=== PATIENT | female | born 1975 | race Caucasian/White ===

== ENCOUNTER 2018-02-03 13:16 | Emergency (ER) | payer OTHER | END 2018-02-03 14:54 | disposition home or self-care (01) | LOC: ER 13:16 | DX: S00.93XA Contusion of unspecified part of head, initial encounter (principal); J45.909 Unspecified asthma, uncomplicated; Z88.2 Allergy status to sulfonamides; X58.XXXA Exposure to other specified factors, initial encounter; Y93.89 Activity, other specified; Y99.8 Other external cause status; Y92.89 Other specified places as the place of occurrence of the external cause | CPT/HCPCS: 70450; 99284-25 ==

== ENCOUNTER → 2018-09-22 | Outpatient (CLI) | payer OTHER ==
[2018-02-03 13:37] VITALS: BP 137/87
[~2018-09-22] MED LIST: ASPI325T11 PO; CLIN150C14 PO; HYDR-2762 PO; HYDR-3164 PO; IBUP-1027 PO; LORA10TA65 PO; PROAIR HFA8.5 GM INH; PROM25TA10 PO
--- NOTE | 2018-09-22 17:13 | RAD ---
DATE: 09/22/2018 EXAM: DIGITAL SCREEN BILAT W/CAD HISTORY: Routine screening COMPARISON: None. This exam is a baseline. This study was interpreted with the benefit of Computerized Aided Detection (CAD). Breast Density: SCATTERED The breast parenchyma shows scattered fibroglandular densities. Breast parenchyma level B. FINDINGS: And ovoid well-circumscribed mass at the left upper outer breast measuring 1.3 cm in maximum dimension is present approximately 7 cm deep from the nipple. No suspicious calcification clusters. No distortion. IMPRESSION: Left upper outer breast mass which may represent a cyst or other likely benign process. Ultrasound examination of the left upper-outer breast is recommended for further assessment. Annual right screening mammography recommended. BI-RADS CATEGORY: 0 INCOMPLETE: NEEDS ADDITIONAL IMAGING EVALUATION AND/OR PRIOR MAMMOGRAMS FOR COMPARISON. RECOMMENDED FOLLOW-UP: ADD ADDITIONAL IMAGING PQRS compliance statement: Patient information was entered into a reminder system with a target due date immediately for the next mammogram. Mammography is a sensitive method for finding small breast cancers, but it does not detect them all and is not a substitute for careful clinical examination. A negative mammogram does not negate a clinically suspicious finding and should not result in delay in biopsying a clinically suspicious abnormality. "Our facility is accredited by the [employer] Mammography Program."
== END | disposition home or self-care (01) ==
LOC: MAMMO 16:03
PROVIDERS: ATTEND Nurse Practitioner Gerontology
DX: Z12.31 Encounter for screening mammogram for malignant neoplasm of breast (principal)
CPT/HCPCS: 77067

== ENCOUNTER → 2018-09-28 | Outpatient (CLI) | payer OTHER ==
[2018-02-03 13:37] VITALS: BP 137/87
--- NOTE | 2018-09-28 09:26 | RAD ---
Left breast ultrasound, 09/28/2018: History: Breast nodule A screening mammogram demonstrated a smooth nodule in the upper outer quadrant. A targeted ultrasound exam of that region demonstrates a 12 x 6 x 10 mm nodule at the 2:30 location located 7 cm in the nipple. This corresponds to the mammographic abnormality. This lesion is anechoic with no internal color flow. There are smooth margins. There is posterior acoustic enhancement. It is wider than tall. The features are that of a simple cyst. No other abnormality is seen in this region. IMPRESSION: 1. Small left breast cyst. 2. Routine yearly mammographic follow-up is suggested. BI-RADS 2-benign findings
== END | disposition home or self-care (01) ==
LOC: US 08:51
PROVIDERS: ATTEND Nurse Practitioner Gerontology
DX: N60.02 Solitary cyst of left breast (principal)
CPT/HCPCS: 76641

== ENCOUNTER 2019-08-16 09:59 | Emergency (ER) | payer OTHER ==
[~2019-08-16] VITALS: Ht 170.2 cm; Wt 99.8 kg
[~2019-08-16 09:59] MED LIST changes: +ALBU2.5V8 INH; -HYDR-2762 PO; +HYDR-2765 PO; -PROAIR HFA8.5 GM INH
--- NOTE | 2019-08-16 10:27 | PHYS DOC ---
Past Medical History Past Medical History: Asthma Past Surgical History: Hysterectomy, Tubal ligation, Other Additional Past Surgical Histo: left knee Alcohol Use: Occasionally Drug Use: None Adult General Chief Complaint Chief Complaint: HYPERTENSION [facility] HPI 44-year-old female presents to the emergency Department complaints of lightheadedness, elevated blood pressure without diagnosis of hypertension and epistaxis. Patient states she's been treating herself with [id number] medications for congestion and cough. Today she states she was at work was passing medications, became dizzy and subsequently developed nosebleed. She denies any chest pain at that time. She has underlying history of asthma and used her inhaler prior to her coming in. She denies any pain, nausea, vomiting, chest pain, abdominal pain, headache or visual change. Her epistaxis resolved prior to her arrival. Review of Systems Review of Systems Constitutional: Denies fever or chills [] Eyes: Denies change in visual acuity, redness, or eye pain [] HENT: = nasal congestion, + epistaxis Respiratory: Denies cough or shortness of breath [] Cardiovascular: No additional information not addressed in HPI [] GI: Denies abdominal pain, nausea, vomiting, bloody stools or diarrhea [] : Denies dysuria or hematuria [] Musculoskeletal: Denies back pain or joint pain [] Neurologic: Denies headache, focal weakness, dizziness resolved [] All other systems were reviewed and found to be within normal limits, except as documented in this note. Current Medications Current Medications Current Medications Medications (Trade) Dose Ordered Sig/Francesco Start Time Stop Time Status Last Admin Dose Admin Albuterol/ Ipratropium (Duoneb) 3 ml 1X ONCE 08/16/19 10:30 08/16/19 10:31 DC 08/16/19 10:31 3 ML Allergies Allergies Allergies Coded Allergies Type Severity Reaction Last Updated Verified Sulfa (Sulfonamide Antibiotics) Allergy Intermediate Unknown 04/23/16 Yes Physical Exam Physical Exam Constitutional: Well developed, well nourished, no acute distress, non-toxic appearance. [] HENT: Normocephalic, atraumatic, bilateral external ears normal, oropharynx moist, no oral exudates, nose normal. [] Eyes: PERRLA, EOMI, conjunctiva normal, no discharge. [] Cardiovascular:Heart rate regular rhythm, no murmur [] Lungs & Thorax: Bilateral breath sounds clear to auscultation [] Abdomen: Bowel sounds normal, soft, no tenderness, no masses, no pulsatile masses. [] Skin: Warm, dry, no erythema, no rash. [] Back: No tenderness, no CVA tenderness. [] Extremities: No tenderness, no edema. [] Neurologic: Alert and oriented X 3, no focal deficits noted. [] Psychologic: Affect normal, judgement normal, mood normal. [] Current Patient Data Vital Signs Vital Signs Date Time Temp Pulse Resp B/P (MAP) Pulse Ox O2 Delivery O2 Flow Rate FiO2 08/16/19 10:31 98 Room Air 08/16/19 10:05 98.5 86 14 143/89 (107) 98.5 Lab Values Laboratory Tests Test 08/16/19 10:12 08/16/19 10:30 POC Urine HCG, Qualitative Hcg negative (Negative) White Blood Count 11.8 x10^3/uL (4.0-11.0) H Red Blood Count 4.53 x10^6/uL (3.50-5.40) Hemoglobin 14.9 g/dL (12.0-15.5) Hematocrit 43.8 % (36.0-47.0) Mean Corpuscular Volume 97 fL (79-100) Mean Corpuscular Hemoglobin 33 pg (25-35) Mean Corpuscular Hemoglobin Concent 34 g/dL (31-37) Red Cell Distribution Width 13.3 % (11.5-14.5) Platelet Count 240 x10^3/uL (140-400) Neutrophils (%) (Auto) 65 % (31-73) Lymphocytes (%) (Auto) 27 % (24-48) Monocytes (%) (Auto) 5 % (0-9) Eosinophils (%) (Auto) 1 % (0-3) Basophils (%) (Auto) 1 % (0-3) Neutrophils # (Auto) 7.7 x10^3/uL (1.8-7.7) Lymphocytes # (Auto) 3.2 x10^3/uL (1.0-4.8) Monocytes # (Auto) 0.6 x10^3/uL (0.0-1.1) Eosinophils # (Auto) 0.1 x10^3/uL (0.0-0.7) Basophils # (Auto) 0.2 x10^3/uL (0.0-0.2) Sodium Level 140 mmol/L (136-145) Potassium Level 4.4 mmol/L (3.5-5.1) Chloride Level 108 mmol/L (98-107) H Carbon Dioxide Level 24 mmol/L (21-32) Anion Gap 8 (6-14) Blood Urea Nitrogen 10 mg/dL (7-20) Creatinine 0.6 mg/dL (0.6-1.0) Estimated GFR (Cockcroft-Gault) 109.1 BUN/Creatinine Ratio 17 (6-20) Glucose Level 83 mg/dL (70-99) Calcium Level 8.9 mg/dL (8.5-10.1) Total Bilirubin 0.4 mg/dL (0.2-1.0) Aspartate Amino Transferase (AST) 14 U/L (15-37) L Alanine Aminotransferase (ALT) 16 U/L (14-59) Alkaline Phosphatase 66 U/L (46-116) Troponin I Quantitative < 0.017 ng/mL (0.000-0.055) Total Protein 6.5 g/dL (6.4-8.2) Albumin 3.6 g/dL (3.4-5.0) Albumin/Globulin Ratio 1.2 (1.0-1.7) Laboratory Tests 08/16/19 10:30 Laboratory Tests 08/16/19 10:30 EKG EKG [] Radiology/Procedures Radiology/Procedures [] Course & Med Decision Making Course & Med Decision Making Pertinent Labs and Imaging studies reviewed. (See chart for details) []44-year-old female presents to the emergency Department complaints of lightheadedness, elevated blood pressure without diagnosis of hypertension and epistaxis. Patient states she's been treating herself with [id number] medications for congestion and cough. Today she states she was at work was passing medications, became dizzy and subsequently developed nosebleed. She denies any chest pain at that time. She has underlying history of asthma and used her inhaler prior to her coming in. She denies any pain, nausea, vomiting, chest pain, abdominal pain, headache or visual change. Her epistaxis resolved prior to her arrival. Laboratory values reviewed and unremarkable. Chest x-ray reveals no evidence of acute process No epistaxis in the emergency department Blood pressure resolved to 130s Discussed dc with patient Discussed follow up with patient Suad Disclaimer Suad Disclaimer This electronic medical record was generated, in whole or in part, using a voice recognition dictation system. Departure Departure Impression: Primary Impression: Epistaxis Additional Impression: Elevated BP without diagnosis of hypertension Disposition: HOME, SELF-CARE Condition: STABLE Referrals: SUZI GUADARRAMA APRN (PCP) Patient Instructions: How to Take Your Blood Pressure, Gsli-[id number], Nosebleed, [id number] Additional Instructions: Recommend follow up with PCP 3 - 5 days Return to the ER with worsening symptoms, intractable pain, fever, altered mental status Tylenol/Motrin as needed for pain CXR negative for acute process Problem Qualifiers DUTCH LEVI MD Aug 16, 2019 10:27
[2019-08-16] MEDS ORDERED: IPRATRPIUM/ALBUTEROL 0.5/2.5MG 3 ML NEBU. NEB ONE (10:30)
[2019-08-16 10:47] LABS: BASO # 0.2 x10^3/uL (0.0-0.2); BASO % 1 % (0-3); EOS # 0.1 x10^3/uL (0.0-0.7); EOS % 1 % (0-3); HEMATOCRIT 43.8 % (36.0-47.0); HEMOGLOBIN 14.9 g/dL (12.0-15.5); LYMPH # 3.2 x10^3/uL (1.0-4.8); LYMPH % 27 % (24-48); MEAN CORPUSCULAR HEMOGLOBIN 33 pg (25-35); MEAN CORPUSCULAR HGB CONC 34 g/dL (31-37); MEAN CORPUSCULAR VOLUME 97 fL (79-100); MONO # 0.6 x10^3/uL (0.0-1.1); MONO % 5 % (0-9); NEUT # 7.7 x10^3/uL (1.8-7.7); NEUT % 65 % (31-73); PLATELET COUNT 240 x10^3/uL (140-400); RED BLOOD COUNT 4.53 x10^6/uL (3.50-5.40); RED CELL DISTRIBUTION WIDTH 13.3 % (11.5-14.5); WHITE BLOOD COUNT 11.8 x10^3/uL (4.0-11.0)
--- NOTE | 2019-08-16 11:01 | RAD ---
PORTABLE CHEST 1V History: Cough, shortness of breath Comparison: November 01, 2004 Findings: Single view of the chest is submitted. There is no infiltrate, pneumothorax, or effusion. The pericardial cardiac silhouette is within normal limits in size. Impression: 1. There is no radiographic evidence of acute cardiopulmonary disease. Electronically signed by: Woo Carter MD (08/16/2019 10:58 AM) [id number]
[2019-08-16 11:15] LABS: CALCIUM 8.9 mg/dL (8.5-10.1); CREATININE 0.6 mg/dL (0.6-1.0); GFR 109.1; POTASSIUM 4.4 mmol/L (3.5-5.1)
[2019-08-16 11:21] LABS: ALBUMIN 3.6 g/dL (3.4-5.0); ALBUMIN/GLOBULIN RATIO 1.2 (1.0-1.7); TOTAL BILIRUBIN 0.4 mg/dL (0.2-1.0); TOTAL PROTEIN 6.5 g/dL (6.4-8.2)
[2019-08-16 13:01] VITALS: BP 140/88
== END 2019-08-16 13:01 | disposition home or self-care (01) ==
LOC: ER 09:59
DX: R04.0 Epistaxis (principal); R03.0 Elevated blood-pressure reading, without diagnosis of hypertension; J45.909 Unspecified asthma, uncomplicated; Z90.710 Acquired absence of both cervix and uterus; Z98.51 Tubal ligation status; Z88.2 Allergy status to sulfonamides
CPT/HCPCS: 36415; 71045; 80053; 81025; 84484; 85025; 94640; 99285; J7620

== ENCOUNTER → 2020-07-25 | Outpatient (CLI) | payer OTHER ==
--- NOTE | 2020-07-25 15:13 | KCIC ---
Chest radiograph 07/25/2020 12:00 AM INDICATION: Bronchitis COMPARISON: 08/16/2019 TECHNIQUE: Frontal and lateral views of the chest are provided. FINDINGS: The cardiomediastinal silhouette is within normal limits. There are no pleural effusions. There is no pulmonary vascular congestion. There is no pneumothorax. The lungs are clear. No significant osseous abnormality is identified. IMPRESSION: No acute cardiopulmonary process. Electronically signed by: Aleksandra Lozano MD (07/25/2020 3:10 PM) [id number]
== END | disposition home or self-care (01) ==
LOC: KCIC 13:31
PROVIDERS: ATTEND Nurse Practitioner Gerontology
DX: J40 Bronchitis, not specified as acute or chronic (principal)
CPT/HCPCS: 71046

== ENCOUNTER 2021-08-12 12:47 | Emergency (ER) | payer BC, OTHER ==
[~2021-08-12] VITALS: Ht 167.6 cm; Wt 109.0 kg
[~2021-08-12 12:47] MED LIST changes: -CLIN150C14 PO; +CLIN150C16 PO
[2021-08-12] MEDS: DIPH,PERTUSS(ACELL),TET VAC/PF 0.5 ML SYRINGE. VAX IM ONE (13:00)
[2021-08-12] MEDS: methylPREDNISolone SOD SUCC PF 125 MG/2 ML VIAL. IM ONE (13:00)
[2021-08-12 13:02] VITALS: BP 149/89
[2021-08-12] MEDS ORDERED: DIPH25TA64 PO (13:04)
[2021-08-12] MEDS ORDERED: PRED20TA PO (13:04)
[2021-08-12] MEDS ORDERED: CEPH500C PO (13:04)
--- NOTE | 2021-08-12 13:05 | PHYS DOC ---
Past Medical History Past Medical History: Asthma Past Surgical History: Hysterectomy, Tubal ligation, Other Additional Past Surgical Histo: left knee Smoking Status: Current Every Day Smoker Alcohol Use: Occasionally Drug Use: None General Adult EDM: Chief Complaint: ITCHING HPI: HPI: Patient is a 46 year old female who presents with yesterday her cat got out and came back inside and was laying on a pillow. She states she awoke now she has contact dermatitis poison hector type rash on her chest and on her right forearm and dorsal hand. She states she is very allergic to poison hector. She states she is using Caladryl lotion and she has other poison hector lotions at home. States she works at a [employer]. Denies any pain she does states the itching is unbearable. Review of Systems: Review of Systems: Constitutional: Denies fever or chills. [] Eyes: Denies change in visual acuity. [] HENT: Denies nasal congestion or sore throat. [] Respiratory: Denies cough or shortness of breath. [] Cardiovascular: Denies chest pain or edema. [] GI: Denies abdominal pain, nausea, vomiting, bloody stools or diarrhea. [] : Denies dysuria. [] Musculoskeletal: Denies back pain or joint pain. [] Integument: + Right arm rash. +chest. + Right hand [] Neurologic: Denies headache, focal weakness or sensory changes. [] Endocrine: Denies polyuria or polydipsia. [] Lymphatic: Denies swollen glands. [] Psychiatric: Denies depression or anxiety. [] Heart Score: C/O Chest Pain: No Allergies: Allergies: Allergies Coded Allergies Type Severity Reaction Last Updated Verified Sulfa (Sulfonamide Antibiotics) Allergy Intermediate Unknown 04/23/16 Yes Physical Exam: PE: Constitutional: Well developed, well nourished, no acute distress, non-toxic appearance. [] HENT: Normocephalic, atraumatic, bilateral external ears normal, oropharynx rizwan st, no oral exudates, nose normal. [] Eyes: PERRLA, EOMI, conjunctiva normal, no discharge. [] Neck: Normal range of motion, no tenderness, supple, no stridor. [] Cardiovascular:Heart rate regular rhythm, no murmur [] Lungs & Thorax: Bilateral breath sounds clear to auscultation [] Abdomen: Bowel sounds normal, soft, no tenderness, no masses, no pulsatile masses. [] Skin: Warm, dry, right forearm erythema, right forearm, right dorsal hand, chest rash, left neck and slightly on the jawline contact dermatitis type rash. [] Back: No tenderness, no CVA tenderness. [] Extremities: No tenderness, no cyanosis, no clubbing, ROM intact, no edema. [] Neurologic: Alert and oriented X 3, normal motor function, normal sensory function, no focal deficits noted. [] Psychologic: Affect normal, judgement normal, mood normal. [] EKG: EKG: [] Radiology/Procedures: Radiology/Procedures: [] Course & Med Decision Making: Course & Med Decision Making Pertinent Labs and Imaging studies reviewed. (See chart for details) See HPI. Alert and oriented x4. Ambulatory steady gait. Speaks in full clear sentences. No facial swelling. Closed blisters and some open. Skin otherwise pink warm and dry. No signs of infection at this time. She is not febrile. Denies shortness of air or trouble breathing. Denies throat swelling or tightness. Patient has Caladryl lotion all over her arm and hand. Patient is given Solu-Medrol IM. [] Dragon Disclaimer: Dragon Disclaimer: This electronic medical record was generated, in whole or in part, using a voice recognition dictation system. Departure Departure Impression: Primary Impression: Contact dermatitis Qualified Codes: L25.9 - Unspecified contact dermatitis, unspecified cause Disposition: HOME / SELF CARE / HOMELESS Condition: STABLE Referrals: SUZI GUADARRAMA APRN (PCP) Patient Instructions: Contact Dermatitis Additional Instructions: Follow-up with primary care physician. If you are having trouble breathing or facial swelling return emergency room. Take medication as prescribed and with food. Scripts Cephalexin (KEFLEX) 500 Mg Capsule 1 CAP PO TID, #30 CAP Prov: LIA CHAPARRO APRN 08/12/21 Diphenhydramine Hcl (BENADRYL ALLERGY) 25 Mg Tablet 1 TAB PO Q6HRS for 5 Days, #20 TAB 0 Refills Prov: LIA CHAPARRO APRN 08/12/21 Prednisone (PREDNISONE) 20 Mg Tablet 1 TAB PO BID, #10 TAB Prov: LIA CHAPARRO APRN 08/12/21 LIA CHAPARRO APRN Aug 12, 2021 13:05
[2021-08-12] MEDS ORDERED: DIPH,PERTUSS(ACELL),TET VAC/PF 0.5 ML SYRINGE. VAX IM ONE (13:08)
== END 2021-08-12 13:37 | disposition home or self-care (01) ==
LOC: ER 12:47
DX: L25.9 Unspecified contact dermatitis, unspecified cause (principal); J45.909 Unspecified asthma, uncomplicated; F17.200 Nicotine dependence, unspecified, uncomplicated; Z88.2 Allergy status to sulfonamides
CPT/HCPCS: 90471; 90715; 96372; 99284; J2930

== ENCOUNTER 2021-10-01 10:56 | Emergency (ER) | payer OTHER ==
[~2021-10-01] VITALS: Ht 167.6 cm; Wt 113.0 kg
[~2021-10-01 10:56] MED LIST changes: +CEPH500C PO; +DIPH25TA64 PO; +PRED20TA PO
[2021-10-01 11:58] LABS: BASO # 0.1 x10^3/uL (0.0-0.2); BASO % 1 % (0-3); EOS # 0.2 x10^3/uL (0.0-0.7); EOS % 2 % (0-3); HEMOGLOBIN 14.9 g/dL (12.0-15.5); LYMPH # 2.6 x10^3/uL (1.0-4.8); LYMPH % 29 % (24-48); MEAN CORPUSCULAR HEMOGLOBIN 33 pg (25-35); MEAN CORPUSCULAR HGB CONC 34 g/dL (31-37); MEAN CORPUSCULAR VOLUME 96 fL (79-100); MONO # 0.6 x10^3/uL (0.0-1.1); MONO % 7 % (0-9); NEUT # 5.5 x10^3/uL (1.8-7.7); NEUT % 61 % (31-73); PLATELET COUNT 289 x10^3/uL (140-400); RED BLOOD COUNT 4.57 x10^6/uL (3.50-5.40)
[2021-10-01] MEDS ORDERED: IV NORMAL SALINE 1000ML BAG 1,000 ML IV ONE (12:00)
[2021-10-01 12:06] LABS: CALCIUM 8.3 mg/dL (8.5-10.1); CREATININE 0.8 mg/dL (0.6-1.0); GFR 77.6; POTASSIUM 4.2 mmol/L (3.5-5.1)
[2021-10-01 12:07] LABS: MAGNESIUM 2.1 mg/dL (1.8-2.4)
[2021-10-01 12:36] VITALS: BP 149/81
--- NOTE | 2021-10-01 12:45 | PHYS DOC ---
Past Medical History Past Medical History: Asthma Past Surgical History: Hysterectomy, Tubal ligation Additional Past Surgical Histo: left knee Smoking Status: Current Every Day Smoker Additional Information: PACK A DAY Alcohol Use: Occasionally Drug Use: None General Adult EDM: Chief Complaint: NEURO SYMPTOMS/DEFICITS HPI: HPI: Patient is a 34 year old female with history of asthma/bronchitis, asthma who presents with tingling in her fingers and bilateral feet Started last night while she was in a hot shower with tingling in both of her feet. She started having tingling mostly in her pointer finger on her right hand. Does not affect the fourth or fifth fingers at all. Denies any headache, neck pain, or back pain. No fevers. No history of IVDU. Denies weakness, speech difficulty, vision changes, or other neurologic symptoms. Does not think that she slept on her arm in an odd manner. No history of stroke, peripheral arterial disease, or CAD. She does report that she was feeling very anxious with many life changes recently. Review of Systems: Review of Systems: Constitutional: Denies fever or chills. [] Eyes: Denies change in visual acuity. [] HENT: Denies nasal congestion or sore throat. [] Respiratory: Denies cough or shortness of breath. [] Cardiovascular: Denies chest pain or edema. [] GI: Denies abdominal pain, nausea, vomiting, bloody stools or diarrhea. [] : Denies dysuria. [] Musculoskeletal: Denies back pain or joint pain. [] Integument: Denies rash. [] Neurologic: Denies headache, focal weakness. Reports tingling in right hand and bilateral lower extremities. Endocrine: Denies polyuria or polydipsia. [] Lymphatic: Denies swollen glands. [] Psychiatric: Denies depression or anxiety. [] Heart Score: C/O Chest Pain: No Current Medications: Current Medications Medications (Trade) Dose Ordered Sig/Francesco Start Time Stop Time Status Last Admin Dose Admin Sodium Chloride 1,000 ml @ 1,000 mls/hr 1X ONCE 10/01/21 12:00 10/01/21 12:59 10/01/21 12:13 1,000 MLS/HR Allergies: Allergies: Allergies Coded Allergies Type Severity Reaction Last Updated Verified Sulfa (Sulfonamide Antibiotics) Allergy Intermediate Unknown 04/23/16 Yes Physical Exam: PE: Constitutional: Well developed, well nourished, no acute distress, non-toxic appearance. [] HENT: Normocephalic, atraumatic, bilateral external ears normal, oropharynx moist, no oral exudates, nose normal. [] Eyes: PERRLA, EOMI, conjunctiva normal, no discharge. [] Neck: Normal range of motion, no tenderness, supple, no stridor. [] Cardiovascular:Heart rate regular rhythm, no murmur [] Lungs & Thorax: Bilateral breath sounds clear to auscultation [] Abdomen: Bowel sounds normal, soft, no tenderness, no masses, no pulsatile masses. [] Skin: Warm, dry, no erythema, no rash. [] Back: No tenderness, no CVA tenderness. [] Extremities: No tenderness, no cyanosis, no clubbing, ROM intact, no edema. [] Neurologic: Alert, oriented to person, place, time. Face is symmetric. Speech is normal. Cranial nerves III-XII intact. 5/5 strength in bilateral upper and lower extremities in all dermatomes. No dysmetria with azxskb-cq-mwxu or uwnw-sm-tkgb testing. Gait is stable. No subjective differences between left and right at time of examination. NIH=0 Psychologic: Affect normal, judgement normal, mood normal. [] Current Patient Data: Labs: Laboratory Tests Test 10/01/21 11:11 10/01/21 11:14 Glucose (Fingerstick) 92 mg/dL (70-99) White Blood Count 9.0 x10^3/uL (4.0-11.0) Red Blood Count 4.57 x10^6/uL (3.50-5.40) Hemoglobin 14.9 g/dL (12.0-15.5) Hematocrit 44.0 % (36.0-47.0) Mean Corpuscular Volume 96 fL (79-100) Mean Corpuscular Hemoglobin 33 pg (25-35) Mean Corpuscular Hemoglobin Concent 34 g/dL (31-37) Red Cell Distribution Width 13.0 % (11.5-14.5) Platelet Count 289 x10^3/uL (140-400) Neutrophils (%) (Auto) 61 % (31-73) Lymphocytes (%) (Auto) 29 % (24-48) Monocytes (%) (Auto) 7 % (0-9) Eosinophils (%) (Auto) 2 % (0-3) Basophils (%) (Auto) 1 % (0-3) Neutrophils # (Auto) 5.5 x10^3/uL (1.8-7.7) Lymphocytes # (Auto) 2.6 x10^3/uL (1.0-4.8) Monocytes # (Auto) 0.6 x10^3/uL (0.0-1.1) Eosinophils # (Auto) 0.2 x10^3/uL (0.0-0.7) Basophils # (Auto) 0.1 x10^3/uL (0.0-0.2) Sodium Level 137 mmol/L (136-145) Potassium Level 4.2 mmol/L (3.5-5.1) Chloride Level 103 mmol/L (98-107) Carbon Dioxide Level 25 mmol/L (21-32) Anion Gap 9 (6-14) Blood Urea Nitrogen 11 mg/dL (7-20) Creatinine 0.8 mg/dL (0.6-1.0) Estimated GFR (Cockcroft-Gault) 77.6 Glucose Level 88 mg/dL (70-99) Calcium Level 8.3 mg/dL (8.5-10.1) L Magnesium Level 2.1 mg/dL (1.8-2.4) Laboratory Tests 10/01/21 11:14 Laboratory Tests 10/01/21 11:14 Vital Signs: Vital Signs Date Time Temp Pulse Resp B/P (MAP) Pulse Ox O2 Delivery O2 Flow Rate FiO2 10/01/21 11:36 69 20 155/77 (103) 98 Room Air 10/01/21 11:05 98.2 98.2 EKG: EKG: [] Radiology/Procedures: Radiology/Procedures: [] Course & Med Decision Making: Course & Med Decision Making Pertinent Labs and Imaging studies reviewed. (See chart for details) Patient 46-year-old female who presents with bilateral lower extremity tingling and right index finger tingling sensation since last night. As above is neurologically intact. NIH = 0. Does not localize to a single spot in the brain or spinal cord. No severe headache, neck pain, or back pain, no IVDU. Doubt ICH or infectious etiology. Do not feel that she requires CT or MRI imaging emergently in the emergency department. Considered MS, which I feel is less likely. She has been experiencing high levels of anxiety related to stressors in her life which may be contributory. No electrolyte or cell count disturbance. I counseled her to follow-up with her PCP to consider further testing for vitamin deficiencies such as B12 if symptoms persist I asked her to return to the emergency department immediately if she were to develop severe headache/neck pain,/back pain, or new neurologic deficits (specifically speech difficulty, vision changes, weakness, progressive numbness etc.) Rosanneon Disclaimer: Dragtolu Disclaimer: This electronic medical record was generated, in whole or in part, using a voice recognition dictation system. Departure Departure Impression: Primary Impression: Tingling sensation Disposition: 01 HOME / SELF CARE / HOMELESS Condition: STABLE Referrals: SUZI GUADARRAMA APRN (PCP) Additional Instructions: Please consider following up with your primary care doctor to consider further testing. Please return to the emergency department immediately if you develop vision changes, speech difficulty, weakness, facial asymmetry, or other new neurologic symptoms. Also please return if you develop severe headache, neck pain, or back pain. MARCELLUS POSADAS MD Oct 01, 2021 12:45
== END 2021-10-01 13:05 | disposition home or self-care (01) ==
LOC: ER 10:56
DX: R20.2 Paresthesia of skin (principal); J45.909 Unspecified asthma, uncomplicated; F17.200 Nicotine dependence, unspecified, uncomplicated; Z88.2 Allergy status to sulfonamides
CPT/HCPCS: 36415; 80048; 82962; 83735; 85025; 96360; 99283; J7030

== ENCOUNTER 2022-01-17 07:19 | Emergency (ER) | payer OTHER ==
[~2022-01-17] VITALS: Ht 167.6 cm; Wt 109.7 kg
[2022-01-17 07:24] VITALS: BP 129/85
[2022-01-17] MEDS ORDERED: METH4TAB2 PO (08:08)
--- NOTE | 2022-01-17 08:09 | ED.ADGEN ---
Past Medical History Past Medical History: Asthma Past Surgical History: Hysterectomy, Tubal ligation Additional Past Surgical Histo: left knee,HERNIA Smoking Status: Current Every Day Smoker Additional Information: 1 PPD Alcohol Use: Heavy Additional Information: DRINKS 2 TO 3 SHOTS OF WHISKEY DAILY Drug Use: None General Adult EDM: Chief Complaint: SKIN RASH/ABSCESS HPI: HPI: Patient is a 46 year old female coming in for 3 days of pruritic rash. Patient treated with Cleocin Grosch around her house today she was exposed to poison heena. Patient states that started on her arms and wrists and has since spread to her hips and face. Denies any eye irritation or tearing. Patient has had similar symptoms in the past. No fevers or other complaints Review of Systems: Review of Systems: All other systems within normal limits except for as noted in the HPI Allergies: Allergies: Allergies Coded Allergies Type Severity Reaction Last Updated Verified Sulfa (Sulfonamide Antibiotics) Allergy Intermediate Unknown 04/23/16 Yes Physical Exam: PE: Constitutional: Well developed, well nourished, no acute distress, non-toxic appearance. [] HENT: Normocephalic, atraumatic, bilateral external ears normal, nose normal. [] Eyes: PERRLA, conjunctiva normal, no discharge. [] Neck: No rigidity, supple, no stridor. [] Cardiovascular: Regular rate and rhythm, brisk cap refill [] Lungs & Thorax: Non labored symmetric respirations, no tachypnea or respiratory distress [] Abdomen: Soft, nondistended. Skin: Warm, dry, papular rash to arms, face and hips. Back: Unremarkable Extremities: No deformities, range of motion grossly intact, no lower extremity edema [] Neurologic: Alert and oriented X 3, no focal deficits noted. [] Psychologic: Affect normal, judgement normal, mood normal. [] Current Patient Data: Vital Signs: Vital Signs Date Time Temp Pulse Resp B/P (MAP) Pulse Ox O2 Delivery O2 Flow Rate FiO2 01/17/22 07:24 98.7 83 18 129/85 (100) 95 Room Air 98.7 EKG: EKG: [] Heart Score: C/O Chest Pain: No Risk Factors: Risk Factors: DM, Current or recent (<one month) smoker, HTN, HLP, family history of CAD, obesity. Risk Scores: Score 0 - 3: 2.5% MACE over next 6 weeks - Discharge Home Score 4 - 6: 20.3% MACE over next 6 weeks - Admit for Clinical Observation Score 7 - 10: 72.7% MACE over next 6 weeks - Early Invasive Strategies Radiology/Procedures: Radiology/Procedures: [] Course & Med Decision Making: Course & Med Decision Making Pertinent Labs and Imaging studies reviewed. (See chart for details) [] Dragon Disclaimer: Dragon Disclaimer: This electronic medical record was generated, in whole or in part, using a voice recognition dictation system. Departure Departure Impression: Primary Impression: Contact dermatitis Disposition: HOME / SELF CARE / HOMELESS Condition: STABLE Referrals: IRWIN RUSSELL MD (PCP) Patient Instructions: Poison Heena Scripts Methylprednisolone (MEDROL) 4 Mg Tab.ds.pk 1 PKG PO UD for inflammation, #1 PKG Prov: LU MICHEL MD 01/17/22 LU MICHEL MD Jan 17, 2022 08:09
[2022-01-17] MEDS ORDERED: methylPREDNISolone SOD SUCC PF 125 MG/2 ML VIAL. IM ONE (08:15)
== END 2022-01-17 08:19 | disposition home or self-care (01) ==
LOC: ER 07:19
DX: L25.9 Unspecified contact dermatitis, unspecified cause (principal); J45.909 Unspecified asthma, uncomplicated; F17.200 Nicotine dependence, unspecified, uncomplicated; F10.20 Alcohol dependence, uncomplicated; Y90.9 Presence of alcohol in blood, level not specified; Z88.2 Allergy status to sulfonamides
CPT/HCPCS: 96372; 99283; J2930